=== PATIENT | female | born 1950 | race Caucasian/White ===

== ENCOUNTER 2016-11-09 05:36 | Day surgery (SDC) | payer MEDICAID ==
[2016-11-09] MEDS ORDERED: LR 1,000 ML IV ONE (06:07)
[2016-11-09] MEDS ORDERED: LIDOCAINE 1% 5 ML SDV ID PRN (06:07)
[2016-11-09] MEDS ORDERED: LIDOCAINE 1% 30 ML SDV ONE (06:52)
[2016-11-09] MEDS ORDERED: BUPIVACAINE 0.5% 30 ML SDV ONE (06:53)
[2016-11-09] MEDS ORDERED: SODIUM BICARBONATE 10 MEQ/10 ML SYR IVP ONE (06:53)
[2016-11-09] MEDS ORDERED: CLINDAMYCIN 600 MG/DEXTROSE/50 ML BAG IV ONE (07:08)
[2016-11-09] MEDS ORDERED: MIDAZOLAM 2 MG/2 ML VIAL ONE (07:09)
[2016-11-09] MEDS ORDERED: fentaNYL 100 MCG/2 ML INJ ONE ×2 (07:10→09:13)
[2016-11-09] MEDS ORDERED: PROPOFOL 200 MG/20 ML VIAL ONE ×2 (07:10)
[2016-11-09] MEDS ORDERED: LIDOCAINE 2% 100 MG/5 ML SYR IVP ONE (07:15)
[2016-11-09] MEDS ORDERED: CLINDAMYCIN 600 MG/DEXTROSE 50 ML IV ONE (07:30)
[2016-11-09] MEDS ORDERED: DEXAMETHASONE 4 MG/ML VIAL ONE (07:53)
[2016-11-09] MEDS ORDERED: ONDANSETRON 4 MG/2 ML VIAL ONE (07:53)
[2016-11-09] MEDS ORDERED: SKIN ADHESIVE (DERMABOND) 1 EACH TP ONE (07:55)
--- NOTE | 2016-11-09 08:49 | DX ---
AP Upright Portable Chest November 09, 2016 Indication: Postop port placement. Findings: Surgical clips are present in the right axilla. A right chest port is noted with the tip at the SVC right atrial junction. Lungs are clear. No pneumothorax. Impression: Port in good position. No pneumothorax.
--- NOTE | 2016-11-09 09:03 | GOP ---
[f rep st] OPERATIVE REPORT DATE OF OPERATION: SURGEON: Sanjana Richmond MD PREOPERATIVE DIAGNOSIS: Right breast cancer with distant metastasis. POSTOPERATIVE DIAGNOSIS: Right breast cancer with distant metastasis. PROCEDURE PERFORMED: Port placement. FINDINGS: Catheter tip within the atriocaval junction. Port flushed and onel without difficulty. SPECIMENS: None. ESTIMATED BLOOD LOSS: 20 mL. INDICATIONS: The patient is a 66-year-old woman with metastatic breast cancer who desired port place ment for chemotherapy access. DESCRIPTION OF PROCEDURE: After informed consent was obtained and preoperative antibiotics were admi nistered, the patient was taken to the operating room, placed in a supine position. SCDs were placed to bilateral lower extremities. General anesthesia was administered, and she was prepped and draped in a sterile fashion. After an appropriate surgical pause, SonoSite ultrasound was used to identify the right internal jugular vein, and it was noted to be patent along its length in the neck, without thrombosis or stenosis. Local anesthetic was injected intradermally in the skin overlying the right internal jugular vein, and a small stab incision was made using an 11 blade. Finder needle was then used to access the right internal jugular vein under direct visualization of the ultrasound. Guidew dionne was threaded through the finder needle, and the needle removed. Intraoperative fluoroscopy confi rmed the guidewire to be in good position in the superior vena cava. We then created the subcutaneou s pocket for the port, first injecting local intradermally in the skin overlying the port site, and t hen making a skin incision using a 15 blade. Bovie electrocautery was used to dissect the subcutaneo us pocket. The port, which was attached to the catheter and flushed with heparinized saline, was the n tacked to the pectoralis fascia using interrupted 3-0 PDS sutures. The catheter was tunneled to th e venous access site using a subcutaneous tunneler. Dilator and sheath were passed over the guidewir e using Seldinger technique, and the dilator and guidewire removed. The catheter was threaded into t he sheath, and the sheath peeled away. Intraoperative fluoroscopy revealed the catheter to be in goo d position with the tip at the atriocaval junction. The skin was closed using 4-0 Monocryl suture an d Dermabond. Once the patient was awakened from general anesthesia, she was extubated, and will be t aken to the post anesthesia recovery unit. /[id number]/MODL
== END 2016-11-09 10:25 | disposition home or self-care (01) ==
LOC: FSGY 05:36
PROVIDERS: ATTEND Surgery
PROC: 0JH60XZ Insertion of Tunneled Vascular Access Device into Chest Subcutaneous Tissue and Fascia, Open Approach (ICD-10-PCS; principal; 2016-11-09 07:15)
PROC: 02HV33Z Insertion of Infusion Device into Superior Vena Cava, Percutaneous Approach (ICD-10-PCS; principal; 2016-11-09 07:15)
DX: C50.919 Malignant neoplasm of unspecified site of unspecified female breast (principal); C79.9 Secondary malignant neoplasm of unspecified site; Z88.2 Allergy status to sulfonamides; Z88.1 Allergy status to other antibiotic agents
CPT/HCPCS: C1788; J1100; J2001; J2250; J2405; J2704; J3010

== ENCOUNTER → 2016-11-12 | Outpatient (CLI) | payer MEDICAID ==
--- NOTE | 2016-11-12 13:39 | NM ---
Nuclear Medicine Whole Body Bone Scan Clinical Indications: Breast cancer x 16 years, known skeletal metastases, new baseline evaluation Technique: 20.1 mCi technetium 99m MDP were injected intravenously. Delayed images of the skeleton were obtained in anterior and posterior projections. Findings: There is convincing evidence of skeletal metastatic disease involving the calvarium, spine, ribs, left coracoid process, pelvis, distal femoral shafts and mid left tibial shaft.. Impression: Active bony metastatic disease.
== END ==
LOC: FIMAGING 08:55
PROVIDERS: ATTEND Internal Medicine Hematology & Oncology
DX: C79.51 Secondary malignant neoplasm of bone (principal); C50.811 Malignant neoplasm of overlapping sites of right female breast
CPT/HCPCS: 78306; A9503

== ENCOUNTER → 2016-11-13 | Outpatient (CLI) | payer MEDICAID ==
--- NOTE | 2016-11-13 15:29 | DX ---
Left hip, 2 views. 11/13/2016 HISTORY: Worsening pain after shoveling snow. History of metastatic breast cancer. TECHNIQUE: 2 views of the left hip are obtained. FINDINGS: Hip joint spaces are symmetric and normal. No osseous replacing lesions identified. Surgica l clips are present in the left hemipelvis. IMPRESSION: 1. Negative left hip radiographs. Comment: If symptoms persist, MRI may be of benefit as clinically appropriate.
== END ==
LOC: FIMAGING 10:52
PROVIDERS: ATTEND Internal Medicine Hematology & Oncology
DX: M25.552 Pain in left hip (principal); Z85.3 Personal history of malignant neoplasm of breast

== ENCOUNTER → 2017-01-29 | Outpatient (CLI) | payer MEDICAID | LOC: FIMAGING 08:34 | PROVIDERS: ATTEND Internal Medicine Hematology & Oncology | DX: C50.811 Malignant neoplasm of overlapping sites of right female breast (principal); C79.51 Secondary malignant neoplasm of bone | CPT/HCPCS: 78306; A9503 ==

== ENCOUNTER → 2017-01-30 | Outpatient (CLI) | payer MEDICAID | LOC: FIMAGING 13:10 | PROVIDERS: ATTEND Internal Medicine Hematology & Oncology | DX: K59.00 Constipation, unspecified (principal); R11.10 Vomiting, unspecified; C50.819 Malignant neoplasm of overlapping sites of unspecified female breast ==

== ENCOUNTER → 2017-04-17 | Outpatient (CLI) | payer MEDICAID | LOC: FIMAGING 10:08 | PROVIDERS: ATTEND Internal Medicine Hematology & Oncology | DX: C79.51 Secondary malignant neoplasm of bone (principal); C50.919 Malignant neoplasm of unspecified site of unspecified female breast | CPT/HCPCS: 78306; A9503; J1642 ==

== ENCOUNTER → 2017-04-18 | Outpatient (CLI) | payer MEDICAID ==
[~2017-04-18] MED LIST: GADOBUTROL 10 ML VIAL IVP ONE
== END ==
LOC: FIMAGING 19:08
PROVIDERS: ATTEND Internal Medicine Hematology & Oncology
DX: M25.552 Pain in left hip (principal); C79.51 Secondary malignant neoplasm of bone; M84.459A Pathological fracture, hip, unspecified, initial encounter for fracture; Z85.3 Personal history of malignant neoplasm of breast
CPT/HCPCS: A9585

== ENCOUNTER → 2017-08-28 | Outpatient (CLI) | payer MEDICAID | LOC: FIMAGING 08:52 | PROVIDERS: ATTEND Internal Medicine Hematology & Oncology | DX: C79.51 Secondary malignant neoplasm of bone (principal); C50.919 Malignant neoplasm of unspecified site of unspecified female breast | CPT/HCPCS: A9503 ==

== ENCOUNTER → 2017-12-30 | Outpatient (CLI) | payer OTHER | LOC: FIMAGING 11:01 | PROVIDERS: ATTEND Internal Medicine Hematology & Oncology | DX: R93.7 Abnormal findings on diagnostic imaging of other parts of musculoskeletal system (principal); C50.811 Malignant neoplasm of overlapping sites of right female breast | CPT/HCPCS: 78306; A9503 ==